=== PATIENT | female | born 1985 | race African-American/Black ===

== ENCOUNTER 2018-05-27 10:24 | Inpatient (IN) | payer OTHER ==
[~2018-05-27] VITALS: Ht 162.6 cm; Wt 98.9 kg
== END 2018-06-06 12:25 | disposition designated cancer center or children's hospital (05) | DRG 446 ==
LOC: ER 10:24 → MEDJ 18:55 → SEC-K 18:55 → MEDJ 21:20
PROC: BF37ZZZ Magnetic Resonance Imaging (MRI) of Pancreas (ICD-10-PCS; 2018-05-27)
PROC: 3E0336Z Introduction of Nutritional Substance into Peripheral Vein, Percutaneous Approach (ICD-10-PCS; 2018-05-28)
PROC: 0F798DZ Dilation of Common Bile Duct with Intraluminal Device, Via Natural or Artificial Opening Endoscopic (ICD-10-PCS; principal; 2018-06-01)
PROC: 05H533Z Insertion of Infusion Device into Right Subclavian Vein, Percutaneous Approach (ICD-10-PCS; 2018-06-02)
DX: K80.71 Calculus of gallbladder and bile duct without cholecystitis with obstruction (principal); E78.49 Other hyperlipidemia; K57.10 Diverticulosis of small intestine without perforation or abscess without bleeding